=== PATIENT | female | born 1985 | race American Indian/Alaskan Native ===

== ENCOUNTER 2017-07-05 22:07 | Inpatient (IN) | payer MEDICAID ==
--- NOTE | 2017-07-05 22:14 | Emergency Department Report ---
ED HPI - General Chief complaint: OB/Uterine Contractions Stated complaint: POST DELIVERY Time Seen by Provider: 07/05/17 22:13 Source: patient, family Mode of arrival: Wheelchair Limitations: Other (patient is deaf. Patient communicates via sign language) - History of Present Illness Initial comments: This is a 32-year-old female who was previously unknown to this provider who presents to the ER after precipitous delivery of at home. Patient speaks sign language and has a family member translating for her. She reported via meal grinder tender that she had received care. She cannot indicate who her private GRADUATE NURSE physician is. She indicates she is having abdominal pain. No further history is available at this time. As per family, patient delivered a baby at 9:25 PM on the day of presentation. MD Complaint: abdominal pain -: Sudden Location: abdomen Consistency: other Improves with: other Worsens with: other - Related Data Allergies Allergy/AdvReac Type Severity Reaction Status Date / Time No Known Allergies Allergy Verified 07/06/17 00:13 ED Review of Systems ROS: Stated complaint: POST DELIVERY Other details as noted in HPI Comment: Unobtainable due to pts medical conditions ED Physical Exam - General Limitations: Language Barrier General appearance: alert, in no apparent distress - Head Head exam: Present: atraumatic, normocephalic - Eye Eye exam: Present: normal appearance - ENT ENT exam: Present: normal exam, normal orophraynx, mucous membranes moist, normal external ear exam - Neck Neck exam: Present: normal inspection - Respiratory Respiratory exam: Present: normal lung sounds bilaterally. Absent: respiratory distress - Cardiovascular Cardiovascular Exam: Present: regular rate, normal rhythm, normal heart sounds. Absent: bradycardia, tachycardia, irregular rhythm, systolic murmur, diastolic murmur, rubs, gallop - GI/Abdominal GI/Abdominal exam: Present: soft, tenderness, normal bowel sounds, other ( uterus is distended and consistent with dates. Minimally tender.). Absent: distended, guarding, rebound, rigid, pulsatile mass - External exam: Present: normal external exam, other (umbilical cord is noted from the vagina.) Speculum exam: Present: other (escorted by nurse Raquel Vines) - Extremities Exam Extremities exam: Present: normal inspection, full ROM - Back Exam Back exam: Present: normal inspection, full ROM. Absent: paraspinal tenderness , vertebral tenderness - Neurological Exam Neurological exam: Present: alert, CN II-XII intact, other (Extraocular movements intact. Tongue midline. No facial droop. Facial sensation intact to light touch in the V1, V2, V3 distribution bilaterally. 5 and 5 strength in 4 extremities.. Sensation is intact to light touch in 4 extremities.). Absent : motor sensory deficit - Psychiatric Psychiatric exam: Present: normal affect, normal mood - Skin Skin exam: Present: warm, dry, intact, normal color. Absent: rash ED Medical Decision Making - Lab Data Result diagrams: 07/06/17 00:00 Vital Signs 07/05/17 07/05/17 07/05/17 22:47 23:02 23:17 Pulse Rate 84 80 82 Blood Pressure 122/67 118/69 117/79 07/05/17 07/05/17 07/06/17 23:32 23:47 00:37 Pulse Rate 88 90 74 Blood Pressure 113/76 115/75 119/72 Labs 07/06/17 00:00 WBC 13.8 H RBC 5.32 H Hgb 11.4 Hct 36.7 MCV 69 L MCH 22 L MCHC 31 RDW 17.3 H Plt Count 198 - Medical Decision Making Differential diagnosis, including but not limited to: Status post delivery, retained placenta Assessment and plan: 32-year-old female who is status post delivery, protecting her airway at this time and hemodynamically stable. Acquired transfer to labor and delivery for definitive management. Case discussed with GRADUATE NURSE physician on -call, Dr. Baker, who graciously accepted the patient to labor and delivery. Critical care attestation.: If time is entered above; I have spent that time in minutes in the direct care of this critically ill patient, excluding procedure time. ED Disposition Clinical Impression: Status post delivery of infant Disposition: DC/TX-02 [id number]-TRM GEN HOSP IP Is pt being admited?: Yes Condition: Good
[2017-07-05] MEDS ORDERED: SUBLIMAZE IV ONE (22:21)
[2017-07-05] MEDS ORDERED: SUBLIMAZE ONE (22:21)
[2017-07-05] MEDS ORDERED: PITOCin/NS 20 UNIT/1000ML DRIP 20,000 MILLIUNITS/1,000 ML BAG IV ONE (22:36)
[2017-07-05] MEDS ORDERED: PITOCin/NS 20 UNIT/1000ML DRIP 20 UNITS/1,000 ML BAG IV SCH (22:45)
[2017-07-05] MEDS ORDERED: ZOFRAN IV PRN (23:26)
[2017-07-05] MEDS ORDERED: BENADRYL PO PRN (23:26)
[2017-07-05] MEDS ORDERED: LANSINOH TP PRN (23:26)
[2017-07-05] MEDS ORDERED: MILK OF MAGNESIA PO PRN (23:26)
[2017-07-05] MEDS ORDERED: TUCKS PAD TP PRN (23:26)
[2017-07-05] MEDS ORDERED: PHENERGAN PO PRN (23:26)
[2017-07-05] MEDS ORDERED: DULCOLAX PR PRN (23:26)
[2017-07-05] MEDS ORDERED: PHENERGAN PR PRN (23:26)
[2017-07-05] MEDS ORDERED: TYLENOL PO PRN (23:26)
--- NOTE | 2017-07-05 23:39 | History and Physical Report ---
History of Present Illness Date of examination: 07/05/17 Date of admission: 07/05/17 22:41 Chief complaint: Home delivery History of present illness: Pt is a 32yo BF EDC 07/18/17; EGA 38 1/7 weeks presents to L&D after delivering her baby girl at home. Placenta has also delivered. She received care at [facility] and is hearing impaired. records are not available. Past History Past Medical History: other (Hearing impaired) Past Surgical History: no surgical history Family/Genetic History: none Social history: no significant social history, single - Obstetrical History Expected Date of Delivery: 07/18/17 Actual Gestation: 38 Week(s) 2 Day(s) : 9 Medications and Allergies Allergies Allergy/AdvReac Type Severity Reaction Status Date / Time No Known Allergies Allergy Verified 07/06/17 00:13 Active Meds: Active Medications Acetaminophen (Tylenol) 650 mg PO Q4H PRN PRN Reason: Pain MILD(1-3)/Fever >100.5/ZEPEDA Acetaminophen/Hydrocodone Bitart ([place] 5/325) 2 each PO Q6H PRN PRN Reason: Pain, Moderate (4-6) Bisacodyl (Dulcolax) 10 mg VA BID PRN PRN Reason: Constipation Diphenhydramine HCl (Benadryl) 25 mg PO Q6H PRN PRN Reason: Itching Ibuprofen (Motrin) 600 mg PO Q6H SANDRA Magnesium Hydroxide (Milk Of Magnesia) 30 ml PO HS PRN PRN Reason: Constipation Multi-Ingredient Ointment (Lansinoh) 1 applic TP PRN PRN PRN Reason: Sore Nipples Ondansetron HCl (Zofran) 4 mg IV Q8H PRN PRN Reason: Nausea And Vomiting Promethazine HCl (Phenergan) 25 mg VA Q6H PRN PRN Reason: Nausea And Vomiting Promethazine HCl (Phenergan) 25 mg PO Q6H PRN PRN Reason: Nausea And Vomiting Sodium Chloride (Sodium Chloride Flush Syringe 10 Ml) 10 ml IV PRN NR Witch Tammy/Glycerin (Tucks Pad) 1 each TP PRN PRN PRN Reason: Hemorrhoid/cleansing/soothing Review of Systems All systems: negative - Vital Signs Vital signs: Vital Signs Pulse BP 84 122/67 07/05/17 22:47 07/05/17 22:47 Temp Pulse Resp BP Pulse Ox 88 113/76 07/05/17 23:32 07/05/17 23:32 - Physical Exam Breasts: Positive: deferred Cardiovascular: Regular rate Lungs: Positive: Clear to auscultation Abdomen: Positive: normal appearance Genitourinary (Female): Positive: normal external genitalia Uterus: Positive: enlarged Extremities: Positive: normal Results Result Diagrams: 07/06/17 10:29 All other labs normal. Assessment and Plan - Patient Problems (1) 38 weeks gestation of Onset Date: 07/05/17 Current Visit: Yes Status: Resolved (2) Status post delivery of Onset Date: 07/05/17 Current Visit: Yes Status: Resolved Plan to address problem: A: S/P Home delivery - Doing well P: Admit to L&D then transfer to Mother/baby unit Obtain records
[2017-07-05] MEDS ORDERED: SODIUM CHLORIDE FLUSH SYRINGE 10 ML IV PRN (23:45)
[2017-07-06 00:16] LABS: Hematocrit 36.7 % (30.3-42.9); Hemoglobin 11.4 gm/dl (10.1-14.3); Mean Corpuscular HGB Conc 31 % (30-34); Platelet Count 198 K/mm3 (140-440); Red Blood Count 5.32 M/mm3 (3.65-5.03); Red Cell Distribution Width 17.3 % (13.2-15.2)
[2017-07-06 00:23] LABS: Mean Corpuscular Hemoglobin 22 pg (28-32); Mean Corpuscular Volume 69 fl (79-97)
[2017-07-06] MEDS: NORCO 5/325 PO PRN ×3 (03:06→23:01)
[2017-07-06 10:43] LABS: Hematocrit 32.5 % (30.3-42.9); Hemoglobin 10.1 gm/dl (10.1-14.3)
--- NOTE | 2017-07-06 10:47 | Progress Note ---
Assessment and Plan - Patient Problems (1) (normal spontaneous vaginal delivery) Onset Date: 07/06/17 Current Visit: Yes Status: Resolved Plan to address problem: A: S/P - PPD #1 Doing well P: May go home tomorrow. Subjective - Subjective Date of service: 07/06/17 Principal diagnosis: s/p - PPD #1 Interval history: Pt is feeling well. Bleeding improved. Patient reports: appetite normal, voiding normally, pain well controlled, flatus , ambulating normally, no dizzy ambulation : doing well, in NICU Objective - Vital Signs Latest vital signs: Vital Signs Temp Pulse Resp BP BP Pulse Ox 07/06/17 03:03 18 104/61 07/06/17 03:01 76 104/61 96 07/06/17 02:30 98.0 F 78 18 104/61 96 07/06/17 00:37 74 119/72 07/05/17 23:47 90 115/75 07/05/17 23:32 88 113/76 07/05/17 23:17 82 117/79 07/05/17 23:02 80 118/69 07/05/17 22:47 84 122/67 Intake and Output 07/05/17 07/06/17 07/06/17 22:59 06:59 14:59 Other: Weight 87.543 kg - Exam Breasts: Present: deferred Cardiovascular: Present: Regular rate Lungs: Present: Clear to auscultation Abdomen: Present: normal appearance Uterus: Present: normal, firm, fundal height below umbilicus Extremities: Present: normal - Labs Labs: Abnormal lab results 07/06/17 Range/Units 00:00 WBC 13.8 H (4.5-11.0) K/mm3 RBC 5.32 H (3.65-5.03) M/mm3 MCV 69 L (79-97) fl MCH 22 L (28-32) pg RDW 17.3 H (13.2-15.2) % Laboratory Tests 07/06/17 07/06/17 07/06/17 00:00 10:29 Unknown WBC 13.8 H RBC 5.32 H Hgb 11.4 10.1 Hct 36.7 32.5 MCV 69 L MCH 22 L MCHC 31 RDW 17.3 H Plt Count 198 Blood Type O POSITIVE
--- NOTE | 2017-07-06 16:22 | Procedure Note ---
OB Delivery Note - Delivery Date of Delivery: 07/05/17 Surgeon: EDY ROGERS Estimated blood loss: 200cc - Vaginal Delivery presentation: vertex Intrapartum events: precipitous labor- <3hr Delivery induction: none Delivery monitor: none Route of delivery: Delivery placenta: spontaneous Episiotomy: none Delivery laceration: none Anesthesia: none Delivery comments: Infant delivered @ home. - Infant A Gender: Female (3351gms)
--- NOTE | 2017-07-06 16:28 | Discharge Summary ---
Providers - Providers Date of Admission: 07/05/17 22:41 Date of discharge: 07/07/17 Attending physician: EDY ROGERS Primary care physician: EDY ROGERS Hospitalization Reason for admission: other (s/p home delivery) Delivery: Episiotomy: none Laceration: none Other procedures: none complications: none Discharge diagnosis: IUP at term delivered [place] baby: female Hospital course: Unremarkable. Condition at discharge: Good Disposition: DC-01 TO HOME OR SELFCARE - Discharge Diagnoses (1) (normal spontaneous vaginal delivery) Status: Resolved Plan - Discharge Medications Prescriptions: Ferrous Sulfate [Feosol 325 MG tab] 325 mg PO BID #60 tablet Ibuprofen [Motrin 600 MG tab] 600 mg PO Q6HR #30 tablet Vit Calc,Iron,Folic [ Vitamins] 1 each PO DAILY #30 tablet - Provider Discharge Summary Activity: routine, no sex for 6 weeks, no heavy lifting 4 weeks, no strenuous exercise Diet: routine Instructions: routine Additional instructions: [] Smoking cessation referral if applicable(refer to patient education folder for contact #) [] Refer to [facility] Book[facility] Call your doctor immediately for: * Fever > 100.5 * Heavy vaginal bleeding ( >1 pad per hour) * Severe persistent headache * Shortness of breath * Reddened, hot, painful area to leg or breast * Drainage or odor from incision. * Keep incision clean and dry at all times and follow doctor's instructions regarding bathing/showering - Follow up plan Follow up: PRIMARY CARE, [Referring] - 3-5 Days EDY ROGERS MD [Primary Care Provider] - 6 Weeks JANE MORGAN CNM [Advanced Practice Nurse] - 6 Weeks
[2017-07-06] MEDS: MOTRIN PO SCH (23:01)
[2017-07-07] MEDS: MOTRIN PO SCH ×2 (06:48→12:30)
[2017-07-07 13:05] VITALS: BP 113/73
== END 2017-07-07 13:25 | disposition home or self-care (01) | DRG 776 ==
LOC: TRG 22:07 → ED 22:07 → TRG 22:07 → EDSTATUS 22:40 → LD 22:41 → OB 07-06 02:32
PROVIDERS: ADMIT Obstetrics & Gynecology; ATTEND Obstetrics & Gynecology
DX: Z39.0 Encounter for care and examination of mother immediately after delivery (principal)
CPT/HCPCS: 36415; 85014; 85018; 85027; 86900; 86901; J2590; J3010